=== PATIENT | female | born 1990 | race Two or more races ===

== ENCOUNTER 2017-09-02 12:47 | Emergency (ER) | payer OTHER ==
[~2017-09-02] VITALS: Ht 152.4 cm; Wt 57.8 kg
[2017-09-02] MEDS ORDERED: HYDROcodone/APAP 7.5-325MG/15ML UDC PO ONE (13:30)
[2017-09-02] MEDS ORDERED: AMPICILLIN/SULBACTAM 3 GM in SODIUM CHLORIDE 0.9% 100 ML IV ONE (13:30)
[2017-09-02] MEDS ORDERED: DEXAMETHASONE 4 MG/ML, 1ML IV ONE (13:30)
[2017-09-02] MEDS ORDERED: LEVO1TAB47 PO (13:34)
[2017-09-02] MEDS ORDERED: DEXAMETHASONE 4 MG/ML, 1ML ONE (13:37)
[2017-09-02] MEDS ORDERED: HYDROcodone/APAP 7.5-325MG/15ML UDC ONE (13:39)
[2017-09-02 13:44] LABS: MEAN CORPUSCULAR HEMOGLOBIN 31.1 pg (27.0-34.8); MEAN CORPUSCULAR HGB CONC 33.7 g/dL (32.4-35.8); MEAN CORPUSCULAR VOLUME 92.3 fL (80-100); MEAN PLATELET VOLUME 9.5 fL (7.4-10.4); PLATELET COUNT 234 x10^3/uL (130-400); RED CELL DISTRIBUTION WIDTH 12.8 % (9.6-15.2)
[2017-09-02 14:01] LABS: MD YES
[2017-09-02 14:03] LABS: <PLATELET ESTIMATE> ADEQUATE; <PLT MORPHOLOGY> NORMAL PLT MORPH; <RBC MORPHOLOGY> NORMAL; BAND#(MANUAL) 1.46 x10^3/uL; BANDS%(MANUAL) 8 % (0-7); LYMPH#(MANUAL) 1.65 x10^3/uL (1-3.4); LYMPHS% (MANUAL) 9 % (22-44); MONOS#(MANUAL) 0.37 x10^3/uL (0.3-2.7); MONOS% (MANUAL) 2 % (2-9); SEG#(MANUAL) 14.82 x10^3/uL (1.8-6.8); SEGS% (MANUAL) 81 % (42-75)
[2017-09-02] MEDS ORDERED: OMNIPAQUE 350 MG/ML, 100ML BOTTLE ONE (14:55)
[2017-09-02 16:01] VITALS: BP 112/78
== END 2017-09-02 16:47 | disposition home or self-care (01) ==
LOC: ED 15:01
DX: J36 Peritonsillar abscess (principal)
CPT/HCPCS: 36415; 70491; 85025; 87081; 87880; 96365; 96375; 99285; J0295; J1100; Q9967

== ENCOUNTER 2017-09-03 13:43 | Emergency (ER) | payer OTHER ==
[~2017-09-03] VITALS: Ht 152.4 cm; Wt 57.6 kg
[~2017-09-03 13:43] MED LIST: LEVO1TAB47 PO
[2017-09-03 13:45] VITALS: BP 115/75
== END 2017-09-03 14:13 | disposition home or self-care (01) ==
LOC: ED 14:05
DX: J36 Peritonsillar abscess (principal)
CPT/HCPCS: 99283

== ENCOUNTER 2018-09-13 00:42 | Emergency (ER) | payer OTHER ==
[~2018-09-13] VITALS: Ht 152.4 cm; Wt 61.2 kg
--- NOTE | 2018-09-13 01:17 | NUR ---
ASSUMED CARE OF PATIENT. PATIENT REPORTS N/V. NO ACUTE DISTRESS NOTED. CALL LIGHT IN PLACE. WILL CONTINUE TO MONITOR.
[2018-09-13] MEDS ORDERED: SODIUM CHLORIDE FLUSH 10ML SYR IVF ONE (01:30)
[2018-09-13] MEDS ORDERED: ONDANSETRON 2MG/ML, 2ML IVPush ONE (01:30)
[2018-09-13] MEDS ORDERED: SODIUM CHLORIDE 0.9% 1,000ML IVBOLUS ONE (01:30)
[2018-09-13 01:40] LABS: MEAN CORPUSCULAR HEMOGLOBIN 30.7 pg (27.0-34.8); MEAN CORPUSCULAR HGB CONC 34.2 g/dL (32.4-35.8); MEAN CORPUSCULAR VOLUME 89.7 fL (80-100); MEAN PLATELET VOLUME 9.2 fL (7.4-10.4); PLATELET COUNT 221 x10^3/uL (130-400)
--- NOTE | 2018-09-13 01:41 | NUR ---
PT RESTING IN ROOM. PT CAN NOT GIVE UA AT THIS TIME. CALL LIGHT IN PLACE. WILL CONTINUE TO MONITOR.
[2018-09-13 01:51] LABS: ALANINE AMINOTRANSFERASE 16 U/L (12-78); ANION GAP 8 mmol/L (5-15); CALCIUM 8.8 mg/dL (8.5-10.1); CHLORIDE 109 mmol/L (98-107); CREATININE 0.93 mg/dL (0.55-1.02)
[2018-09-13 01:56] LABS: ALKALINE PHOSPHATASE 51 U/L (45-117); BILIRUBIN,TOTAL 0.8 mg/dL (0.2-1.0); TOTAL PROTEIN 8.1 g/dL (6.4-8.2)
[2018-09-13 01:59] LABS: MD SCAN
[2018-09-13 02:02] LABS: BASOPHILS % (AUTO) 0 % (0-1); EOSINOPHILS % (AUTO) 0 % (1-7); LYMPHOCYTES % (AUTO) 2 % (22-44); MONOCYTES % (AUTO) 2 % (2-9); NEUTROPHILS # (AUTO) 10.28 x10^3/uL (1.8-6.8); NEUTROPHILS % (AUTO) 96 % (42-75)
[2018-09-13 02:03] LABS: EOSINOPHILS # (AUTO) 0.02 x10^3/uL (0-0.4); LYMPHOCYTES # (AUTO) 0.17 x10^3/uL (1-3.4); MONOCYTES # (AUTO) 0.23 x10^3/uL (0.2-0.8)
[2018-09-13 02:41] VITALS: BP 110/64
[2018-09-13 02:59] LABS: CULTURE INDICATED? YES; MICROSCOPIC INDICATED
== END 2018-09-13 03:30 | disposition home or self-care (01) ==
LOC: ED 03:00
DX: A08.4 Viral intestinal infection, unspecified (principal)
CPT/HCPCS: 36415; 80053; 81001; 83690; 84703; 85025; 87086; 96361; 96374; 99283; J2405; J7030